=== PATIENT | female | born 1985 | race African-American/Black ===

== ENCOUNTER → 2016-07-01 | Outpatient (REF) | payer BC | LOC: M LAB REF 16:55 | PROVIDERS: ATTEND Emergency Medicine | DX: E55.9 Vitamin D deficiency, unspecified (principal) ==

== ENCOUNTER → 2016-07-01 | Outpatient (REF) | payer BC | LOC: M LAB REF 16:54 | PROVIDERS: ATTEND Obstetrics & Gynecology | DX: N97.8 Female infertility of other origin (principal) ==

== ENCOUNTER → 2016-07-29 | Outpatient (REF) | payer BC ==
[2016-07-29 13:43] LABS: PROGESTERONE 26.7 NG/ML
[2016-07-29 13:44] LABS: ESTRADIOL 69.8 PG/ML
== END ==
LOC: M LAB REF 12:55 → M LABDRAW1 12:55
PROVIDERS: ATTEND Obstetrics & Gynecology Reproductive Endocrinology
DX: N97.9 Female infertility, unspecified (principal)

== ENCOUNTER → 2016-08-09 | Outpatient (REF) | payer BC ==
[2016-08-09 09:46] LABS: HCG, SERUM QUANTITATIVE < 1.0 MIU/ML
[2016-08-09 09:52] LABS: PROGESTERONE 13.9 NG/ML
== END ==
LOC: M LAB REF 09:28
PROVIDERS: ATTEND Obstetrics & Gynecology Reproductive Endocrinology
DX: Z32.00 Encounter for pregnancy test, result unknown (principal)

== ENCOUNTER 2019-09-09 10:56 | Emergency (ER) | payer OTHER ==
[~2019-09-09] VITALS: Ht 162.6 cm; Wt 90.9 kg
[2019-09-09] MEDS ORDERED: CEFD300CAP PO (12:02)
== END 2019-09-09 12:30 | disposition left against medical advice (07) ==
LOC: M ED 10:56
DX: R04.2 Hemoptysis (principal); Z53.21 Procedure and treatment not carried out due to patient leaving prior to being seen by health care provider; Z87.891 Personal history of nicotine dependence

== ENCOUNTER → 2019-09-09 | Outpatient (CLI) | payer OTHER ==
[~2019-09-09] MED LIST: CEFD300CAP PO
== END ==
LOC: M LABSMTC 10:13
PROVIDERS: ATTEND Family Medicine
DX: Z11.59 Encounter for screening for other viral diseases (principal); Z20.828 Contact with and (suspected) exposure to other viral communicable diseases
CPT/HCPCS: 87486; 87581; 87633; 87798; U0002

== ENCOUNTER → 2020-06-16 | Outpatient (CLI) | payer OTHER ==
--- NOTE | 2020-06-16 15:34 | REP ---
INDICATION: PAIN COMPARISON: None. TECHNIQUE: AP, lateral left tibia/fibula FINDINGS: The osseous structures and joint spaces are intact and normal. There is no evidence for acute fracture or dislocation. Surrounding soft tissues are unremarkable. No subcutaneous emphysema or radiodense foreign body. IMPRESSION: . No acute fracture or dislocation. <Electronically signed by Lionel Gómez > 06/16/20 0722
--- NOTE | 2020-06-16 15:35 | REP ---
INDICATION: PAIN COMPARISON: None. TECHNIQUE: AP, lateral, bilateral oblique views left foot. FINDINGS: The osseous structures and joint spaces are intact and normal. There is no evidence for acute fracture or dislocation. Surrounding soft tissues are unremarkable. No subcutaneous emphysema or radiodense foreign body. IMPRESSION: . No acute fracture or dislocation. <Electronically signed by Lionel Gómez > 06/16/20 [id number]
--- NOTE | 2020-06-16 15:36 | REP ---
INDICATION: PAIN COMPARISON: None. TECHNIQUE: AP, lateral, bilateral oblique views. FINDINGS: Soft tissue swelling noted. No acute fracture or dislocation. Skeletal structures and joint spaces are intact and normal. Ankle mortise appears stable. No subcutaneous emphysema or radiodense foreign body. IMPRESSION: Swelling. No acute fracture or dislocation appreciated. <Electronically signed by Lionel Gómez > 06/16/20 3025
== END ==
LOC: M WUC 15:04
DX: M79.672 Pain in left foot (principal)

== ENCOUNTER → 2022-02-24 | Outpatient (REF) | payer OTHER | LOC: M LAB REF 17:11 | PROVIDERS: ATTEND Nurse Practitioner Family | DX: Z12.4 Encounter for screening for malignant neoplasm of cervix (principal) | CPT/HCPCS: 87624; G0123 ==

== ENCOUNTER → 2023-09-11 | Outpatient (CLI) | payer OTHER ==
[2023-09-11 16:19] LABS: ALKALINE PHOSPHATASE 82 U/L (46-116); ALT/SGPT 19 U/L (7.0-40); AST/SGOT 16 U/L (<34); BILIRUBIN,TOTAL 0.4 MG/DL (0.3-1.2); BLOOD UREA NITROGEN 9 MG/DL (9-23); CARBON DIOXIDE LEVEL 30 MMOL/L (20-31); CHLORIDE LEVEL 107 MMOL/L (98-107); CREATININE FOR GFR 0.63 MG/DL (0.55-1.30); GLOMERULAR FILTRATION RATE > 60.0 (>60); GLUCOSE, FASTING 87 MG/DL (60-100); IRON (FE) 39 UG/DL (50-170); MAGNESIUM LEVEL 1.9 MG/DL (1.8-2.4); PERCENT SATURATION 10.9 % (13.2-45.0); POTASSIUM SERUM 3.9 MMOL/L (3.5-5.1); SODIUM LEVEL 137 MMOL/L (136-145); TOTAL IRON BINDING CAPACITY 358 UG/DL (250-425); TOTAL PROTEIN 7.1 G/DL (5.7-8.2)
[2023-09-11 16:21] LABS: FOLATE 17.2 NG/ML (>5.4); VITAMIN B12 LEVEL 430 PG/ML (211-911)
[2023-09-11 16:22] LABS: TOTAL 25(OH) VITAMIN D 8.3 NG/ML (20.0-100.0)
== END ==
LOC: M LAB 14:30
PROVIDERS: ATTEND Registered Nurse
DX: R20.9 Unspecified disturbances of skin sensation (principal)

== ENCOUNTER 2023-09-23 12:17 | Emergency (ER) | payer OTHER ==
[~2023-09-23] VITALS: Ht 162.6 cm; Wt 78.3 kg
[2023-09-23] MEDS ORDERED: AMOX500T2 (12:24)
[2023-09-23] MEDS ORDERED: AMPH1CAP14 (12:24)
[2023-09-23] MEDS ORDERED: ACET300T48 (12:24)
[2023-09-23] MEDS: methylPREDNISolone 125MG 2ML VIAL IV ONE (14:28)
[2023-09-23] MEDS: KETOROLAC 30 MG/ML 1ML VIAL IV ONE (14:28)
[2023-09-23] MEDS: diphenhydrAMINE 50MG/ML VIAL IV ONE (14:29)
[2023-09-23] MEDS: FAMOTIDINE 20MG/2ML VIAL IVP ONE (14:29)
[2023-09-23] MEDS ORDERED: MEDR4PAK PO (15:20)
[2023-09-23] MEDS ORDERED: PEPC1TAB5 PO (15:20)
[2023-09-23] MEDS ORDERED: KETO10TAB PO (15:20)
[2023-09-23 15:47] VITALS: BP 126/83; TEMP 98.2; O2SAT 100
== END 2023-09-23 15:58 | disposition home or self-care (01) ==
LOC: M ED 12:17
DX: R22.0 Localized swelling, mass and lump, head (principal); T36.0X5A Adverse effect of penicillins, initial encounter; Z79.1 Long term (current) use of non-steroidal anti-inflammatories (NSAID); Z79.52 Long term (current) use of systemic steroids; Z79.899 Other long term (current) drug therapy
CPT/HCPCS: 96374; 96375; 99284; J1200; J1885; J2919; S0028